=== PATIENT | female | born 1990 | race Caucasian/White ===

== ENCOUNTER 2019-04-04 00:01 | Emergency (ER) | payer SELFPAY ==
[2019-04-04 00:25] VITALS: BP 121/82
[2019-04-04] MEDS ORDERED: SODIUM CHLORIDE 0.9% 1000 ML 1,000 ML IV ONE (00:31)
--- NOTE | 2019-04-04 00:35 | Emergency Department Report ---
History of Present Illness - General Chief Complaint: Overdose Stated Complaint: POSS OVERDOSE Time Seen by Provider: 04/04/19 00:20 Source: family Mode of arrival: Wheelchair Limitations: Altered Mental Status - History of Present Illness Initial Comments: Ms. Lauren is a healthy 28-year-old female who presents with boyfriend for concern of potential overdose. Boyfriend admits that they were taking shots of alcohol celebrate his birthday. She took ibuprofen 3 different times in order to address headache. Due to her inebriation, boyfriend says that she took too many tablets inadvertently. He feels that she took as many as 9 tablets of 800 mg ibuprofen. Patient denies suicidal ideation or intentional overdose. MD Complaint: accidental overdose -: Gradual, This evening Intent: other (alcohol intoxication) How Overdose Was Discovered: family/friend present Context: Accidental Overdose: was drinking then took pi Treatments Prior to Arrival: none - Related Data Allergies Allergy/AdvReac Type Severity Reaction Status Date / Time No Known Allergies Allergy Unverified 04/04/19 00:09 ED Review of Systems ROS: Stated complaint: POSS OVERDOSE Other details as noted in HPI Comment: All other systems reviewed and negative Constitutional: denies: fever, malaise Respiratory: denies: cough Cardiovascular: denies: chest pain ED Past Medical Hx - Past Medical History Previous Medical History?: No - Surgical History Past Surgical History?: No - Social History Smoking Status: Current Every Day Smoker ED Physical Exam - General Limitations: No Limitations General appearance: alert, in no apparent distress - Head Head exam: Present: atraumatic, normocephalic - Eye Eye exam: Present: normal appearance - ENT ENT exam: Present: mucous membranes moist - Neck Neck exam: Present: normal inspection, full ROM - Respiratory Respiratory exam: Present: normal lung sounds bilaterally. Absent: respiratory distress, wheezes, rales, rhonchi - Cardiovascular Cardiovascular Exam: Present: regular rate, normal rhythm, normal heart sounds. Absent: systolic murmur, diastolic murmur, rubs, gallop - GI/Abdominal GI/Abdominal exam: Present: soft, normal bowel sounds. Absent: distended, tenderness, guarding, rebound - Extremities Exam Extremities exam: Present: normal inspection - Neurological Exam Neurological exam: Present: alert, oriented X3 - Psychiatric Psychiatric exam: Present: normal affect, normal mood - Skin Skin exam: Present: warm, dry, intact, normal color. Absent: rash ED Course Vital Signs 04/04/19 00:23 Temperature 98.0 F Pulse Rate 73 Respiratory 18 Rate Blood Pressure 121/82 O2 Sat by Pulse 97 Oximetry ED Medical Decision Making - Medical Decision Making After brief observation in the ER, Ms. Lauren is now ambulatory and alert. She repeatedly denied intentional overdose or depression. She explained that she forgotten that she had taken the previous dose of ibuprofen. Boyfriend was there at the time of ingestion. She did not make any statements of intention to harm herself. She desires to be discharged. Boyfriend is comfortable taking her home at this time. Critical care attestation.: If time is entered above; I have spent that time in minutes in the direct care of this critically ill patient, excluding procedure time. ED Disposition Clinical Impression: Acute alcohol intoxication, Accidental overdose Disposition: DC-01 TO HOME OR SELFCARE Is pt being admited?: No Does the pt Need Aspirin: No Condition: Stable Instructions: Alcohol Intoxication (ED)
== END 2019-04-04 01:20 | disposition home or self-care (01) ==
LOC: ED 00:01
DX: T51.91XA Toxic effect of unspecified alcohol, accidental (unintentional), initial encounter (principal); F10.129 Alcohol abuse with intoxication, unspecified; F17.200 Nicotine dependence, unspecified, uncomplicated; Y92.89 Other specified places as the place of occurrence of the external cause

== ENCOUNTER 2019-09-15 00:38 | Emergency (ER) | payer SELFPAY ==
[2019-09-15 01:48] LABS: HCG Qualitative,Urine Positive (Negative)
[2019-09-15 02:53] LABS: Basophils % (Auto) 0.4 % (0.0-1.8); Eosinophils # (Auto) 0.5 K/mm3 (0.0-0.4); Eosinophils % (Auto) 4.5 % (0.0-4.3); Hematocrit 39.8 % (30.3-42.9); Hemoglobin 13.5 gm/dl (10.1-14.3); Lymphocytes # (Auto) 4.5 K/mm3 (1.2-5.4); Lymphocytes % (Auto) 40.7 % (13.4-35.0); Mean Corpuscular HGB Conc 34 % (30-34); Mean Corpuscular Volume 98 fl (79-97); Monocytes # (Auto) 0.7 K/mm3 (0.0-0.8); Monocytes % (Auto) 6.1 % (0.0-7.3); Platelet Count 274 K/mm3 (140-440); Red Blood Count 4.06 M/mm3 (3.65-5.03); Red Cell Distribution Width 12.9 % (13.2-15.2)
[2019-09-15 03:16] LABS: Alanine Aminotransferase 41 units/L (7-56); Albumin 4.3 g/dL (3.9-5); BUN/Creatinine Ratio 13; Blood Urea Nitrogen 9 mg/dL (7-17); Calcium 9.2 mg/dL (8.4-10.2); Hemolysis Index 3
--- NOTE | 2019-09-15 04:01 | Emergency Department Report ---
ED Female HPI - General Chief complaint: Vaginal Bleeding Stated complaint: VAG BLEED (PREG) Source: patient Mode of arrival: Ambulatory Limitations: No Limitations - History of Present Illness Initial comments: Patient is a A2 28-year-old German female who is approximately 4 weeks gestation and with no past medical history presented to the ED with complaint of acute onset persistent vaginal bleeding with dark blood clot with the last 1 hour. Patient also complains of persistent nausea for the last 2 days. Patient states that she had a positive test 3 days ago and has not followed up with any [employer] physician. Patient states that her last menst rual cycle was August 09, 2019. Patient denies abdominal pain, dysuria, urinary frequency and urgency, vomiting, vaginal discharge, dyspareunia, low back pain, fever, chills, cough, chest pain, shortness of breath, dizziness, sore throat or change in vision. MD Complaint: vaginal bleeding -: Sudden, hour(s) (2) Location: other (vaginal) Radiation: non-radiating Severity: mild Severity scale (0 -10): 0 Quality: dull Consistency: intermittent Improves with: none Worsens with: none Are you Now?: Yes ( Approximately 4 weeks gestation) Associated Symptoms: denies other symptoms, vaginal bleeding, nausea/vomiting. denies: vaginal discharge, abdominal pain, fever/chills, headaches, loss of appetite, dysuria, hematuria, rash, seizure, shortness of breath, syncope, weakness, other - Related Data Sexually active: Yes : 4 Para: 1 A: 2 Previous Rx's Medication Instructions Recorded Last Taken Type Pnv No.121/Iron/Folic Acid 1 each PO DAILY #60 tablet 09/15/19 Unknown Rx [ Multivitamin Tablet] Promethazine [Phenergan] 25 mg PO Q6HR PRN #24 tab 09/15/19 Unknown Rx Allergies Allergy/AdvReac Type Severity Reaction Status Date / Time No Known Allergies Allergy Unverified 04/04/19 00:09 ED Review of Systems ROS: Stated complaint: VAG BLEED (PREG) Other details as noted in HPI Constitutional: denies: chills, fever Eyes: denies: eye pain, eye discharge, vision change ENT: denies: ear pain, throat pain Respiratory: denies: cough, shortness of breath, wheezing Cardiovascular: denies: chest pain, palpitations Endocrine: no symptoms reported Gastrointestinal: denies: abdominal pain, nausea, diarrhea Genitourinary: abnormal menses (Vaginal bleeding). denies: urgency, dysuria, discharge Musculoskeletal: denies: back pain, joint swelling, arthralgia Skin: denies: rash, lesions Neurological: denies: headache, weakness, paresthesias Psychiatric: denies: anxiety, depression Hematological/Lymphatic: denies: easy bleeding, easy bruising ED Past Medical Hx - Past Medical History Previous Medical History?: No - Surgical History Past Surgical History?: No - Social History Smoking Status: Current Every Day Smoker Substance Use Type: Marijuana - Medications Home Medications: Home Medications Medication Instructions Recorded Confirmed Last Taken Type Pnv No.121/Iron/Folic Acid 1 each PO DAILY #60 tablet 09/15/19 Unknown Rx [ Multivitamin Tablet] Promethazine [Phenergan] 25 mg PO Q6HR PRN #24 tab 09/15/19 Unknown Rx ED Physical Exam - General Limitations: No Limitations General appearance: alert, in no apparent distress - Head Head exam: Present: atraumatic, normocephalic, normal inspection - Eye Eye exam: Present: normal appearance, PERRL, EOMI Pupils: Present: normal accommodation - ENT ENT exam: Present: normal exam, normal orophraynx, mucous membranes moist, TM's normal bilaterally - Neck Neck exam: Present: normal inspection, full ROM - Respiratory Respiratory exam: Present: normal lung sounds bilaterally. Absent: respiratory distress, wheezes, rales, rhonchi, chest wall tenderness, accessory muscle use, decreased breath sounds - Cardiovascular Cardiovascular Exam: Present: regular rate, normal rhythm, normal heart sounds. Absent: systolic murmur, diastolic murmur, rubs, gallop - GI/Abdominal GI/Abdominal exam: Present: soft, normal bowel sounds. Absent: tenderness, guarding, rebound, hyperactive bowel sounds, hypoactive bowel sounds - Bi-manual exam: Present: other (Pelvic exam deferred, patient preference) - Extremities Exam Extremities exam: Present: normal inspection, full ROM, normal capillary refill - Back Exam Back exam: Present: normal inspection, full ROM. Absent: tenderness, CVA tenderness (R), muscle spasm, paraspinal tenderness, vertebral tenderness - Neurological Exam Neurological exam: Present: alert, oriented X3, CN II-XII intact, normal gait, reflexes normal - Psychiatric Psychiatric exam: Present: normal affect, normal mood - Skin Skin exam: Present: warm, dry, intact, normal color. Absent: rash ED Course Vital Signs 09/15/19 00:50 Temperature 99.4 F Pulse Rate 103 H Respiratory 16 Rate Blood Pressure 135/99 O2 Sat by Pulse 98 Oximetry ED Medical Decision Making - Lab Data Result diagrams: 09/15/19 02:20 09/15/19 02:20 - Radiology Data Radiology results: report reviewed, image reviewed Findings [facility] [address] [place] [address] Ultrasound Report Signed Patient: BRITTANY CAIN MR#: [id number] 6 : 1990 Acct:[id number] Age/Sex: 28 / F ADM Date: 09/15/19 Loc: ED Attending Dr: Ordering Physician: DAVID HENDRIX Date of Service: 09/15/19 Procedure(s): US OB transvaginal Accession Number(s): [id number] cc: DAVID HENDRIX Pelvic ultrasound transabdominal and transvaginal. HISTORY: Vaginal bleeding. . FINDINGS: The endometrial stripe measures 1.1 cm. An early gestational sac is dated 5 weeks 2 days. Right ovary measures 2.7 x 2.2 x 2 cm and contains a 1.4 cm complex cyst. Left ovary measures 2.4 x 2.1 x 2.2 cm and contains a 1.4 cm complex cyst. A small amount of free fluid is noted. Ovarian blood flow is unremarkable. IMPRESSION: 1. Early intrauterine . 2. Small complex ovarian cysts. 3. Small amount of free fluid. Signer Name: Gurdeep Bartlett MD Signed: 09/15/2019 4:01 AM Workstation Name: [id number] Transcribed By: ES Dictated By: Gurdeep Bartlett MD Electronically Authenticated By: Gurdeep Bartlett MD Signed Date/Time: 09/15/19400 DD/ 7 TD/TT: Findings [facility] [address] [place] [address] Ultrasound Report Signed Patient: BRITTANY CAIN MR#: [id number] 6 : 1990 Acct:[id number] Age/Sex: 28 / F ADM Date: 09/15/19 Loc: ED Attending Dr: Ordering Physician: DAVID HENDRIX Date of Service: 09/15/19 Procedure(s): US OB <= 14 weeks fetus Accession Number(s): [id number] cc: DAVID HENDRIX Pelvic ultrasound transabdominal and transvaginal. HISTORY: Vaginal bleeding. . FINDINGS: The endometrial stripe measures 1.1 cm. An early gestational sac is dated 5 weeks 2 days. Right ovary measures 2.7 x 2.2 x 2 cm and contains a 1.4 cm complex cyst. Left ovary measures 2.4 x 2.1 x 2.2 cm and contains a 1.4 cm complex cyst. A small amount of free fluid is noted. Ovarian blood flow is unremarkable. IMPRESSION: 1. Early intrauterine . 2. Small complex ovarian cysts. 3. Small amount of free fluid. Signer Name: Gurdeep Bartlett MD Signed: 09/15/2019 4:01 AM Workstation Name: [id number] Transcribed By: ES Dictated By: Gurdeep Bartlett MD Electronically Authenticated By: Gurdeep Bartlett MD Signed Date/Time: 09/15/19400 DD/ [id number] TD/TT: - Medical Decision Making This is a A2 28-year-old German female who is approximately 4 weeks gestation and with no past medical history presented to the ED with complaint of acute onset persistent vaginal bleeding with dark blood clot with the last 1 hour. Patient also complains of persistent nausea for the last 2 days. Patient states that she had a positive test 3 days ago and has not followed up with any [employer] physician. Patient states that her last menstrual cycle was August 09, 2019. In the ED, patient is alert and oriented x3 and is not in di stress. Lab test results were reviewed and showed mild acute leukocytosis of 11,100, with hCG quant of 4587. Transvaginal ultrasound showed a single early IUP of approximately 5 weeks and 2 days, and small complex ovarian cysts and small amount of free fluid. The heart tones was not appreciated because the is too early at this time. These findings were discussed with the patient and patient was advised to maintain a complete pelvic rest for the next 2 weeks and follow-up with your [employer] physician in 2 days for reevaluation. Patient was advised to return to the ED immediately if symptoms get worse. - Differential Diagnosis Threatened miscarriage; UTI; Subchorionic bleed; Ovarian cyst Critical care attestation.: If time is entered above; I have spent that time in minutes in the direct care of this critically ill patient, excluding procedure time. ED Disposition Clinical Impression: Threatened miscarriage in early , Bleeding in early , Nausea and vomiting during Qualifiers: Weeks of gestation: less than 8 weeks Qualified Code(s): Z3A.01 - Less than 8 weeks gestation of Disposition: DC-01 TO HOME OR SELFCARE Is pt being admited?: No Does the pt Need Aspirin: No Condition: Stable Instructions: Threatened Miscarriage (ED), (ED), Acute Nausea and Vomiting (ED) Additional Instructions: Maintain a complete pelvic rest, with no physical or strenuous or sexual activity. Follow-up with your [employer] physician in 2 to 3 days for reevaluation. Return to the ED immediately if symptoms get worse. Prescriptions: Promethazine [Phenergan] 25 mg PO Q6HR PRN #24 tab PRN Reason: Nausea Pnv No.121/Iron/Folic Acid [ Multivitamin Tablet] 1 each PO DAILY #60 tablet Referrals: TAMARA MTZ MD [Staff Physician] - 3-5 Days Time of Disposition: 04:43 Print Language: VIETNAMESE
--- NOTE | 2019-09-15 04:06 | Ultrasound Report ---
Pelvic ultrasound transabdominal and transvaginal. HISTORY: Vaginal bleeding. . FINDINGS: The endometrial stripe measures 1.1 cm. An early gestational sac is dated 5 weeks 2 days. Right ovary measures 2.7 x 2.2 x 2 cm and contains a 1.4 cm complex cyst. Left ovary measures 2.4 x 2 .1 x 2.2 cm and contains a 1.4 cm complex cyst. A small amount of free fluid is noted. Ovarian blood flow is unremarkable. IMPRESSION: 1. Early intrauterine . 2. Small complex ovarian cysts. 3. Small amount of free fluid. Signer Name: Gurdeep Bartlett MD Signed: 09/15/2019 4:01 AM Workstation Name: [id number]
[2019-09-15 04:51] VITALS: BP 128/84
== END 2019-09-15 05:00 | disposition home or self-care (01) ==
LOC: ED 00:38
DX: O20.0 Threatened abortion (principal); O21.9 Vomiting of pregnancy, unspecified; F17.200 Nicotine dependence, unspecified, uncomplicated; F12.10 Cannabis abuse, uncomplicated; Z3A.01 Less than 8 weeks gestation of pregnancy; Z79.899 Other long term (current) drug therapy
CPT/HCPCS: 36415; 76801; 76817; 80053; 81025; 84702; 85025